=== PATIENT | male | born 1935 | race Caucasian/White ===

== ENCOUNTER 2017-01-09 09:55 | Observation (INO) | payer MEDICARE, BC ==
[~2017-01-09] VITALS: Ht 180.3 cm; Wt 107.8 kg
[2017-01-09] VITALS (647 sets, daily range): BP systolic 113–138; BP diastolic 62–87; PULSE 76–90; TEMP 96.8–97.8; O2SAT 86–99
[~2017-01-09 09:55] MED LIST: AMOXICILLIN 8751 TAB PO; ASPIR-LOW81 MG PO; ASPIRIN 81M81 MG/TA2 PO; ASPIRIN E.C. 8181 MG PO; BUMEX 1MG TA1 MG/TA1 PO; CAL-CITRATE PLU1 TAB PO; CARDIZEM CD 18180 MG PO; CARDURA2 MG PO; CARDURA4 MG PO; CEPHALEXIN500 M1 PO; COLACE 100100 MG/CAP PO; COUMADIN 77.5 MG/TAB PO; COUMADIN10 MG PO; COUMADIN5 MG PO; DILTIAZEM; DOXAZOSIN4 MG PO; FERROUS SU325 MG/TAB PO; FLOMAX 0.40.4 MG/CAP PO; FOLIC ACID 40400 MCG PO; IRON324 M1 PO; K-DUR 2020 MEQ PO; LASIX 40MG TABL40 MG PO; LIPITOR 80MG80 MG PO; LOPRESSOR 225 MG/TAB PO; LOPRESSOR 550 MG/TAB PO; MULTAQ400 MG PO; MULTIPLE VITAMI1 CAP PO; NORCO 325 MG-51 TAB PO; PEPCID 20MG TAB20 MG PO; PLAVIX 75MG TAB75 MG PO; PROTONIX 40MG T40 MG PO; SENOKOT-S TAB1 UDTAB PO; SOTALOL; SOTALOL PO; SOTALOL80 MG PO; TYLENOL 325MG325 MG PO; VITAMIN C500 MG PO; WARFARIN SOD5 MG PO; ZESTRIL 5MG5 MG PO
[2017-01-09] MEDS ORDERED: LASIX 20MG TABL20 MG PO (10:13)
[2017-01-09] MEDS ORDERED: ELIQUIS 2.5 PO (10:14)
[2017-01-09] MEDS ORDERED: LIPITOR 40MG TA40 MG PO (10:15)
[2017-01-09] MEDS ORDERED: ZOLOFT 50MG50 MG PO (10:16)
[2017-01-09] MEDS ORDERED: MULTAQ400 MG PO (10:18)
[2017-01-09 10:35] LABS: BASO # 0.1 (0.0-0.2); BASO % 0.7 % (0.0-2.0); EOS # 0.2 (0.0-0.7); EOS % 2.6 % (0-4.0); GRAN # 4.3 (1.4-6.5); GRAN % 56.4 % (42.2-75.2); HEMATOCRIT 43.9 % (42.0-52.0); HEMOGLOBIN 14.3 g/dl (13.5-18.0); LYMPH # 2.1 (1.2-3.4); LYMPH % 27.5 % (20.0-51.0); MEAN CELL VOLUME 97 fl (80.0-100.0); MEAN CORPUSCULAR HEMOGLOBIN 32 pg (27.0-31.0); MEAN CORPUSCULAR HGB CONC 33 g/dl (33.0-37.0); MEAN PLATELET VOLUME 9.5 fl (7.4-10.4); MONO # 0.9 (0.1-0.6); MONO % 12.4 % (1.7-9.3); PLATELET COUNT 231 K/mm3 (130-400); RED BLOOD COUNT 4.54 M/mm3 (4.20-5.60); WHITE BLOOD COUNT 7.6 K/mm3 (4.8-10.8)
[2017-01-09 10:42] LABS: INR 1.1 (0.8-3.0); PROTHROMBIN TIME 12.2 SECONDS (9.7-12.8)
[2017-01-09 10:47] LABS: ADJUSTED CALCIUM 9.4 mg/dL (8.4-10.2); ALANINE AMINOTRANSFERASE 29 U/L (21-72); ALBUMIN 4.2 gm/dL (3.5-5.0); ALKALINE PHOSPHATASE 151 U/L (50-136); ANION GAP 11 mmol/L (7-16); BILIRUBIN,TOTAL 0.8 mg/dL (0.0-1.0); BLOOD UREA NITROGEN 40 mg/dL (9-20); CALCIUM 9.6 mg/dL (8.4-10.2); CARBON DIOXIDE 25 mmol/L (22-30); CHLORIDE 102 mmol/L (98-107); CREATININE, serum 2.65 mg/dL (0.66-1.25); GLUCOSE 94 mg/dL (74-106); POTASSIUM 4.2 mmol/L (3.4-5.0); SODIUM 137 mmol/L (137-145); TOTAL PROTEIN 7.5 gm/dL (6.4-8.2)
[2017-01-09 10:56] LABS: B-TYPE NATRIURETIC PEPTIDE 2100 pg/mL (0-450)
[2017-01-09 10:58] LABS: C-REACTIVE PROTEIN < 0.5 mg/dL (0.0-0.9); TROPONIN-I 0.062 ng/mL (0.000-0.034)
[2017-01-09 11:03] LABS: COLLECTION METHOD CLEAN CATCH
[2017-01-09 11:10] LABS: MUCOUS Present /lpf; PH 5 (5-8); SQUAMOUS EPITHELIAL None Seen /hpf; URINE APPEARANCE Hazy; URINE BACTERIA None Seen /hpf; URINE BILIRUBIN Negative (NEGATIVE); URINE BLOOD 2+ (NEGATIVE); URINE COLOR Yellow; URINE GLUCOSE Negative (NEGATIVE); URINE KETONE Negative (NEGATIVE); URINE LEUKOCYTE ESTERASE Negative (NEGATIVE); URINE PROTEIN(semi-quant) Negative (NEGATIVE); URINE RBC 0-2 /hpf; URINE UROBILINOGEN Negative (NEGATIVE); URINE WBC 0-2 /hpf
[2017-01-09] MEDS ORDERED: ELIQUIS 5MG PO (12:43)
[2017-01-09] MEDS ORDERED: CARTIA XT180 MG PO (12:45)
[2017-01-10] VITALS (846 sets, daily range): BP systolic 98–141; BP diastolic 64–78; PULSE 65–78; TEMP 97; O2SAT 88–100
[2017-01-10 05:48] LABS: BASO % 0.4 % (0.0-2.0); EOS # 0.2 (0.0-0.7); EOS % 2.6 % (0-4.0); GRAN # 4.9 (1.4-6.5); GRAN % 67.9 % (42.2-75.2); HEMATOCRIT 42.9 % (42.0-52.0); HEMOGLOBIN 13.8 g/dl (13.5-18.0); LYMPH # 1.3 (1.2-3.4); LYMPH % 18.4 % (20.0-51.0); MEAN CELL VOLUME 97 fl (80.0-100.0); MEAN CORPUSCULAR HEMOGLOBIN 31 pg (27.0-31.0); MEAN CORPUSCULAR HGB CONC 32 g/dl (33.0-37.0); MEAN PLATELET VOLUME 9.4 fl (7.4-10.4); MONO # 0.7 (0.1-0.6); MONO % 10.1 % (1.7-9.3); PLATELET COUNT 208 K/mm3 (130-400); RED BLOOD COUNT 4.42 M/mm3 (4.20-5.60); WHITE BLOOD COUNT 7.2 K/mm3 (4.8-10.8)
[2017-01-10 06:02] LABS: ADJUSTED CALCIUM 9.5 mg/dL (8.4-10.2); ALBUMIN 3.7 gm/dL (3.5-5.0); CALCIUM 9.3 mg/dL (8.4-10.2); CHOLESTEROL RISK RATIO 3.2; CREATININE, serum 2.61 mg/dL (0.66-1.25); MAGNESIUM 2.2 mg/dL (1.6-2.3); POTASSIUM 4.5 mmol/L (3.4-5.0)
[2017-01-10 06:13] LABS: TROPONIN-I 0.044 ng/mL (0.000-0.034)
[2017-01-10] MEDS ORDERED: NITROSTAT0.4 MG/TAB SL (14:57)
[2017-01-10] MEDS ORDERED: CORDARONE200 MG/TAB PO (14:57)
== END 2017-01-10 15:30 | disposition home or self-care (01) ==
LOC: COL.ER 09:55 → ICU 11:16
PROVIDERS: Emergency Medicine; Nurse Practitioner Family
DX: I21.4 Non-ST elevation (NSTEMI) myocardial infarction (principal); I48.0 Paroxysmal atrial fibrillation; I25.10 Atherosclerotic heart disease of native coronary artery without angina pectoris; I13.0 Hypertensive heart and chronic kidney disease with heart failure and stage 1 through stage 4 chronic kidney disease, or unspecified chronic kidney disease; I50.30 Unspecified diastolic (congestive) heart failure; N18.4 Chronic kidney disease, stage 4 (severe); E78.5 Hyperlipidemia, unspecified; N40.0 Benign prostatic hyperplasia without lower urinary tract symptoms; Z85.528 Personal history of other malignant neoplasm of kidney; Z90.5 Acquired absence of kidney; J98.11 Atelectasis; Z45.018 Encounter for adjustment and management of other part of cardiac pacemaker; Z95.5 Presence of coronary angioplasty implant and graft; I25.2 Old myocardial infarction; Z79.82 Long term (current) use of aspirin; Z79.01 Long term (current) use of anticoagulants; Z88.1 Allergy status to other antibiotic agents; Z96.642 Presence of left artificial hip joint
CPT/HCPCS: G0378; J0282; J7060

== ENCOUNTER → 2018-11-11 | Outpatient (CLI) | payer MEDICARE, BC ==
[~2018-11-11] MED LIST changes: +CARTIA XT180 MG PO; +CORDARONE200 MG/TAB PO; +ELIQUIS 2.5 PO; +ELIQUIS 5MG PO; +LASIX 20MG TABL20 MG PO; +LIPITOR 40MG TA40 MG PO; +NITROSTAT0.4 MG/TAB SL; +ZOLOFT 50MG50 MG PO
== END ==
LOC: COL.VAS 07:54
DX: N18.4 Chronic kidney disease, stage 4 (severe) (principal)
CPT/HCPCS: G0365

== ENCOUNTER 2019-02-04 09:56 | Day surgery (SDC) | payer MEDICARE, BC ==
[~2019-02-04] VITALS: Ht 180.3 cm; Wt 105.9 kg
[2019-02-04 11:00] VITALS: BP 135/65; PULSE 66; TEMP 97.9
--- NOTE | 2019-02-04 11:03 | NUR ---
Initial visit; Patient and daughter thanked Coil Rewind Machine Operator for offering encouragement and prayer prior to his surgical procedure.
[2019-02-04] MEDS ORDERED: CULTURELLE1 EAC1 PO (11:14)
[2019-02-04] MEDS ORDERED: CARDIZEM CD 12120 MG PO (11:15)
[2019-02-04] MEDS ORDERED: LOPRESSOR 225 MG/TAB PO (11:16)
[2019-02-04] MEDS ORDERED: MULTAQ400 MG PO (11:17)
[2019-02-04] MEDS ORDERED: RANEXA 500MG T500 MG PO (11:17)
[2019-02-04 11:20] LABS: CALCIUM 8.6 mg/dL (8.4-10.2); CREATININE, serum 2.44 (0.66-1.25); POTASSIUM 4.7 mmol/L (3.4-5.0)
--- NOTE | 2019-02-04 11:20 | NUR ---
TO RM AT 1025- CALL LIGHT IN REACH DAUGHTER AMADOR AT BEDSIDE.
[2019-02-04 13:55] VITALS: BP 129/63; PULSE 67
--- NOTE | 2019-02-04 13:55 | NUR ---
Patient returns to room 1 per cart from surgery accompanied by Thad VALVERDE and Юлия LENNON. Patient is awake and alert. Temp 97.4 and room air sats 93%. Javier set dressing on the left wrist and slight thrill noted. IV fluids infusing and siderails up x2. Call light in reach. Daughter in room. Patient is sipping on water.
[2019-02-04 14:10] VITALS: BP 122/60; PULSE 59
--- NOTE | 2019-02-04 14:10 | NUR ---
Resting and continues to drink water. Javier set dry on the left wrist. Offers no complaints of pain.
[2019-02-04 14:25] VITALS: BP 123/59; PULSE 63
--- NOTE | 2019-02-04 14:25 | NUR ---
Resting and is eating muffin. Denies pain or nausea.
[2019-02-04 14:40] VITALS: BP 101/46; PULSE 60
[2019-02-04] MEDS ORDERED: TYLENOL 325MG325 MG PO (14:40)
--- NOTE | 2019-02-04 14:40 | NUR ---
Resting and continues to sip on water and eat muffin.
--- NOTE | 2019-02-04 14:50 | NUR ---
IV discontinued and site is free of redness. Pressure held and site wrapped with coban. Daughter in room and assists patient with dressing.
--- NOTE | 2019-02-04 15:15 | NUR ---
Dismissal instructions given to patient and daughter and both verbalzie understanding of these. Provided handout for and AV fistula restrictions and office number to call for any questions or concerns.
--- NOTE | 2019-02-04 15:23 | NUR ---
Patient dismissed to home driven by daughter and taken to the front door by wheelchair and assisted into car by RN with instructions in hand.
== END 2019-02-04 15:23 | disposition home or self-care (01) ==
LOC: SDCO 09:56
PROVIDERS: Surgery
DX: I13.2 Hypertensive heart and chronic kidney disease with heart failure and with stage 5 chronic kidney disease, or end stage renal disease (principal); N18.5 Chronic kidney disease, stage 5; I25.10 Atherosclerotic heart disease of native coronary artery without angina pectoris; I25.2 Old myocardial infarction; E78.5 Hyperlipidemia, unspecified; M19.90 Unspecified osteoarthritis, unspecified site; Z79.01 Long term (current) use of anticoagulants; Z85.53 Personal history of malignant neoplasm of renal pelvis; Z96.642 Presence of left artificial hip joint; Z95.0 Presence of cardiac pacemaker; Z90.5 Acquired absence of kidney; Z79.82 Long term (current) use of aspirin; Z88.1 Allergy status to other antibiotic agents
CPT/HCPCS: J0690; J1644; J2704; J3010; J7030

== ENCOUNTER 2020-06-08 07:52 | Day surgery (SDC) | payer MEDICARE, BC ==
[~2020-06-08] VITALS: Ht 180.3 cm; Wt 106.8 kg
[~2020-06-08 07:52] MED LIST changes: +CARDIZEM CD 12120 MG PO; +CULTURELLE1 EAC1 PO; +RANEXA 500MG T500 MG PO
[2020-06-08 09:54] VITALS: BP 135/33; PULSE 70; TEMP 97.3
[2020-06-08 11:55] VITALS: BP 137/64; PULSE 63; TEMP 97.1
[2020-06-08 12:10] VITALS: BP 126/55; PULSE 66
[2020-06-08 12:25] VITALS: BP 112/58; PULSE 61
[2020-06-08 12:45] VITALS: BP 120/61; PULSE 62
[2020-06-08 17:46] VITALS: BP 130/72; PULSE 60; TEMP 97.8
--- NOTE | 2020-06-08 17:46 | NUR ---
PT RETURNED FROM PACU PER CART. ALERT AND ORIENTATED. DENIES PAIN OR NAUSEA. REQUESTS BLUEBERRY MUFFIN, WATER AND PEPSI. LUNGS CLEAR, HRR, BOWEL SOUNDS PRESENT AND HYPOACTIVE. O2 ON AT 2L PER NC. SATS ARE MAINTAINED IN THE 90'S. PT DENIES SHORTNESS OF BREATH. DAUGHTER KELSEY AT BEDSIDE TALKING WITH PT. SIDERAILS UP AND CALL LIGHT IN REACH.
--- NOTE | 2020-06-08 17:51 | NUR ---
PT TOLERATING FOOD AND FLUIDS WITHOUT DIFFICULTY. IVF PATENT. DENIES PAIN OR NAUSEA/VOMITING AT THIS TIME. WILL CONT TO MONITOR PROGRESS.
--- NOTE | 2020-06-08 17:54 | NUR ---
PT UP TO THE BATHROOM. AMBULATED WITH DAUGHTER AND HAS A STEADY GAIT. PT STATED, 'TRIED TO GO TO THE BATHROOM, BUT COULDNT GO'. ENCOURAGED PT TO DRINK MORE FLUIDS. OFFERED PT WATER AND ASSISTED PT TO AMBULATE BACK HALLWAY IN OUTPATIENT SURGERY AND EXPLAINED RATIONALE, TO WAKE UP THE BLADDER AFTER GENERAL ANESTHESIA AND TO MONITOR VOIDING HABITS, TO MAKE SURE HE DIDNT DEVELOP A CLOT. PT WAS IN AGREEMENT WITH WALKING AND CONTINUES TO TOLERATE FLUID AND FOOD. PT DENIES NAUSEA AND PAIN. PT WAS VERY APPRECIATIVE OF HIS CARE HERE AT THE HOSPITAL, HIS AFFECT WAS POSITIVE THAT HE WOULD VOID AND WAS LOOKING FORWARD TO GOING HOME. WILL CONT TO MONITOR PROGRESS.
--- NOTE | 2020-06-08 18:01 | NUR ---
ENCOURAGED PATIENT TO AMBULATE AND VOID. PT AMBULATED TO THE BATHROOM AND STATED, 'I DRIBBLED SOME URINE'. PT WAS BLADDER SCANNED, NOTED 269 ML OF FLUID PRESENT IN BLADDER. NOTIFIED DR IRIZARRY OF FINDINGS. STATED THAT HE WOULD COME BY AND VISIT THE PATIENT. PT DAUGHTER BROUGHT PT FOOD FROM [employer]. PT WAS SITTING UP EATING STEAK, SWEET POTATO AND BREAD. ENCOURAGED PT TO DRINK FLUIDS. REQUESTED AND WAS OFFERED PEPSI AND WATER. WILL CONT. TO MONITOR PROGRESS.
--- NOTE | 2020-06-08 18:07 | NUR ---
PT AMBULATED TO THE BATHROOM WITHOUT ASSISTANCE OR DIFFICULTY AND VOIDED LIGHT PINK URINE. DR IRIZARRY INSPECTED URINE AND STATED HE WAS OK FOR DISCHARGE. SPOKE TO THE PATIENT ABOUT INCREASING FLUIDS, GETTING REST, SITTING ON THE TOILET TO VOID AND TRYING TO RELAX. TO RETURN TO ER IF PT WAS UNABLE TO VOID AT HOME AND IF HE BECAME INCREASINGLY UNCOMFORTABLE. PT VOICED UNDERSTANDING OF VERBAL INSTRUCTIONS ALONG WITH KELSEY, HIS DAUGHTER.
--- NOTE | 2020-06-08 18:11 | NUR ---
IV WAS DISCONTINUED TO RIGHT HAND, PT TOLERATED WELL. RETURN APPT WAS MADE FOR May AND WRITTEN ON INSTRUCTION/ DISCHARGE SHEET. PT AND PT DAUGHTER, KELSEY VOICE UNDERSTANDING OF DISCHARGE INSTRUCTIONS AND DISCHARGE PAPERWORK WAS SIGNED. PT WAS TAKEN TO THE ER ENTRANCE AND DISCHARGED TO FAMILY VEHICLE, DAUGHTER KELSEY WAS DRIVING.
== END 2020-06-08 16:00 | disposition home or self-care (01) ==
LOC: SDCO 07:52
DX: D09.0 Carcinoma in situ of bladder (principal); I13.0 Hypertensive heart and chronic kidney disease with heart failure and stage 1 through stage 4 chronic kidney disease, or unspecified chronic kidney disease; I50.9 Heart failure, unspecified; N18.30 Chronic kidney disease, stage 3 unspecified; E11.22 Type 2 diabetes mellitus with diabetic chronic kidney disease; I07.1 Rheumatic tricuspid insufficiency; E78.5 Hyperlipidemia, unspecified; F32.9 Major depressive disorder, single episode, unspecified; I25.10 Atherosclerotic heart disease of native coronary artery without angina pectoris; I48.91 Unspecified atrial fibrillation; E66.9 Obesity, unspecified; Z79.82 Long term (current) use of aspirin; Z85.528 Personal history of other malignant neoplasm of kidney; Z79.01 Long term (current) use of anticoagulants; Z79.899 Other long term (current) drug therapy; Z95.0 Presence of cardiac pacemaker; Z95.818 Presence of other cardiac implants and grafts; Z80.3 Family history of malignant neoplasm of breast
CPT/HCPCS: C1769; J0690; J1100; J2370; J2405; J3010; J7030; Q9967

== ENCOUNTER 2020-06-12 15:50 | Inpatient (IN) | payer MEDICARE, BC ==
[~2020-06-12] VITALS: Ht 180.3 cm; Wt 106.8 kg
[2020-06-12 18:10] LABS: HEMATOCRIT 37.9 % (42.0-52.0); HEMOGLOBIN 12.5 g/dl (13.5-18.0); MEAN CELL VOLUME 97 fl (80.0-100.0); MEAN CORPUSCULAR HEMOGLOBIN 32 pg (27.0-31.0); MEAN CORPUSCULAR HGB CONC 33 g/dl (33.0-37.0); MEAN PLATELET VOLUME 9.6 fl (7.4-10.4); PLATELET COUNT 187 K/mm3 (130-400); RED BLOOD COUNT 3.92 M/mm3 (4.20-5.60); REDCELL DISTRIBUTION WIDTH-CV 13.9 % (11.5-14.5)
[2020-06-12 18:15] LABS: INR 1.1 (0.8-3.0); PROTHROMBIN TIME 11.9 SECONDS (9.7-12.8)
[2020-06-12 18:18] LABS: ALBUMIN 3.3 gm/dL (3.5-5.0); BILIRUBIN,TOTAL 0.3 mg/dL (0.0-1.0); CALCIUM 8.7 mg/dL (8.4-10.2); CREATININE, serum 2.93 (0.66-1.25); POTASSIUM 4.7 mmol/L (3.4-5.0); TOTAL PROTEIN 6.3 gm/dL (6.4-8.2)
[2020-06-12 19:00] LABS: BAND 4 % (0-10); EOSINOPHIL 5 % (0-4); LYMPHOCYTE 27 % (20.0-51.0); NEUTROPHILS 60 % (42.0-75.2); PLATELET ESTIMATE NORMAL (NORMAL)
--- NOTE | 2020-06-12 20:33 | NUR ---
Arrived to unit, awake, alert, oriented x 4, verbal with clear speech, SAXMAN, bladder irrigation ongoing to gravity- urine light red color, tolerating well, denies pain, updated daughter Ashley & patient on plan of care. Verbalized understanding
--- NOTE | 2020-06-12 21:30 | NUR ---
Patient's daughter notified charge nurse that she gave patient night medications - held Eliquis due to the lateness of him arriving to the floor, list obtained from Ashley and put on chart, updated in computer records. MD notified.
[2020-06-12] MEDS ORDERED: LASIX 20MG TABL20 MG PO (22:03)
[2020-06-12 22:20] VITALS: BP 119/58; PULSE 60; TEMP 97.8
--- NOTE | 2020-06-13 03:43 | NUR ---
Resting quietly, CBI continues, adjusted CBI rate accordingly, light pink urine at this time, NPO status maintained, Will continue to monitor.
[2020-06-13 03:52] VITALS: BP 134/56; PULSE 60; TEMP 97.9
[2020-06-13 06:17] LABS: BASO % 0.5 % (0.0-2.0); EOS # 0.3 (0.0-0.7); EOS % 3.7 % (0-4.0); GRAN # 4.9 (1.4-6.5); HEMATOCRIT 37.1 % (42.0-52.0); LYMPH # 1.3 (1.2-3.4); MEAN CELL VOLUME 98 fl (80.0-100.0); MEAN CORPUSCULAR HEMOGLOBIN 32 pg (27.0-31.0); MEAN CORPUSCULAR HGB CONC 32 g/dl (33.0-37.0); MEAN PLATELET VOLUME 9.5 fl (7.4-10.4); MONO # 0.8 (0.1-0.6); MONO % 10.8 % (1.7-9.3); PLATELET COUNT 170 K/mm3 (130-400); RED BLOOD COUNT 3.77 M/mm3 (4.20-5.60); REDCELL DISTRIBUTION WIDTH-CV 13.5 % (11.5-14.5)
[2020-06-13 06:25] LABS: CALCIUM 8.3 mg/dL (8.4-10.2); CREATININE, serum 2.62 (0.66-1.25); POTASSIUM 4.5 mmol/L (3.4-5.0)
[2020-06-13 07:36] VITALS: BP 131/60; PULSE 61; TEMP 98.1
--- NOTE | 2020-06-13 08:00 | NUR ---
Patient 2 assisted up to chair. alert & oriented, very kind. full bed bath given. new linens provided. Cath cares given. He brushed his teeth. Cbi to mod rate increased blood noted after activity. Orders for general diet obtained-breakfast ordered. Int. Will monitor.
--- NOTE | 2020-06-13 09:32 | NUR ---
Hospitlist rounded. Patient daughter at bedside. Patient did well with breakfast. Cbi continues at slow rate pink tinged output.
[2020-06-13 11:34] VITALS: BP 125/62; PULSE 62; TEMP 97.9
--- NOTE | 2020-06-13 12:09 | NUR ---
SW met with patient to complete intake. Patient's daughter Mine [phone] present during time of intake. Patient provides that he lives in [place] alone, does not utilize any DME and is independent with ADL's. Patient's daughter states that patient's DPOA is Dr. Ramsey and pharmacy is [facility], and states that he is able to afford his medications. DPOA-HC is daughter Mine. Daughter states that physician provided that patient would probably go home with in a day or so. Patient's daughter states that patient does not utilize any HH services at this time, but does have a private person that comes in to assist patient. Patient and daughter decline HH services. Patient's plan is to go back to his home in [place] up on [place] and has no questions or concerns with doing so. JAYLENE will continue to follow.
--- NOTE | 2020-06-13 14:25 | NUR ---
Patient has been resting. Reports pressure, the urge to void. Patient lujan hand irrigated with 30ml sterile water. irrigated easy. Lujan flows easy now. pressure was relieved. Patient up to chair- CBI rate increased slightly. Patient watching TV. Provided with warm blanket & pepsi. Will monitor.
[2020-06-13 17:20] VITALS: BP 137/65; PULSE 66; TEMP 98.1
--- NOTE | 2020-06-13 17:43 | NUR ---
Patient assisted back to bed. Sitting up eating dinner. He spoke on the phone to his family. Cbi continues at a slow rate. He denies pain & nausea. Int. Tele on, Vss.
[2020-06-13 19:32] VITALS: BP 129/59; PULSE 62; TEMP 97.8
[2020-06-14 00:01] VITALS: BP 142/56; PULSE 62; TEMP 98.2
[2020-06-14 04:58] VITALS: BP 140/64; PULSE 59; TEMP 98.3
--- NOTE | 2020-06-14 06:04 | NUR ---
RESTING QUIETLY. CBI INFUSES AT A MODERATE-SLOW RATE. OUTPUT IS PINK IN COLOR. NO CLOTS SEEN. THERE HAS BEEN NO NEED TO MANUALLY IRRIGATE DURING THE NIGHT. PT DENIES PAIN OR PRESSURE TO ABDOMEN.
[2020-06-14 06:14] LABS: HEMOGLOBIN 12.1 g/dl (13.5-18.0); MEAN CELL VOLUME 98 fl (80.0-100.0); MEAN CORPUSCULAR HEMOGLOBIN 32 pg (27.0-31.0); MEAN CORPUSCULAR HGB CONC 33 g/dl (33.0-37.0); MEAN PLATELET VOLUME 9.7 fl (7.4-10.4); PLATELET COUNT 174 K/mm3 (130-400); RED BLOOD COUNT 3.73 M/mm3 (4.20-5.60); REDCELL DISTRIBUTION WIDTH-CV 13.7 % (11.5-14.5)
[2020-06-14 06:17] LABS: HEMATOCRIT 36.4 % (42.0-52.0)
[2020-06-14 06:33] LABS: CALCIUM 8.5 mg/dL (8.4-10.2); CREATININE, serum 2.54 (0.66-1.25); POTASSIUM 4.6 mmol/L (3.4-5.0)
[2020-06-14 07:18] VITALS: BP 142/64; PULSE 62; TEMP 98.2
--- NOTE | 2020-06-14 07:22 | NUR ---
Patient assisted up to the chair this am. He is alert & oriented this am. Breakfast ordered. He denies nausea. Int. Pelaez to DD, Cbi to slow rate. He denies pain, will monitor.
--- NOTE | 2020-06-14 09:38 | NUR ---
Patient sitting up in chair, I did speak to , he will see patient this evening. I will continue to monitor CBI & try to titrate off. It remains at a slow drip with pink output, sediment noted. Update given to his daughter Ashley(Ob Nurse)-she will work go to work and head back this evening. Will continue to monitor
--- NOTE | 2020-06-14 10:51 | NUR ---
Varnisher Apprentice attended clinical rounds with the team. After rounds, SW met with the patient to review the discharge plan. The patient is open to home health services and wanted me to discuss it with his daughter, Ashley. SW contacted Ashley. The patient's recently and used [facility] in [place]. Ashley would like to use them if they provide home health services, if not [facility] is the choice. SW contacted [facility] in [place] and they do not provide home health services. JAYLENE faxed referrals to [facility] and contacted Elisa regarding referral. They will review referral then inform this SW of decision. JAYLENE attempted to contact Ashley to provide the above update, left message. *Discharge disposition* Home with Home Health. Awaiting screen for home health services from [facility].
[2020-06-14 11:16] VITALS: BP 145/72; PULSE 76; TEMP 97.8
--- NOTE | 2020-06-14 11:43 | NUR ---
Patient resting in bed. Lunch ordered. Pelaez care provided. New stat lock to right thigh. Cbi continues at slow rate. Enrique celestin.
--- NOTE | 2020-06-14 11:45 | NUR ---
First visit from the practice administrator. No needs right now.
--- NOTE | 2020-06-14 14:26 | NUR ---
Patient CBI clamped per . He did well with lunch. Will monitor.
--- NOTE | 2020-06-14 14:55 | NUR ---
Elisa with [facility] contacted this SW regarding the patient. Elisa reports that the patient is accepted for home health services when ready to discharge.
[2020-06-14 16:00] VITALS: BP 150/66; PULSE 90; TEMP 97.7
--- NOTE | 2020-06-14 16:19 | NUR ---
Dr.Rosso olmedo. Plan of care reviewed. Update given to his daughter Ashley. Patient up and we ambulated the halls. gaitbelt on. Dyspnea with exertion. Patient now talking to his daughter on the phone.
--- NOTE | 2020-06-14 19:53 | NUR ---
Assisted patient to the bathroom. He had soft formed bowel movement. Assesment done. Patient denies pain. CBI clamped. He is on room air. Placed SCD on bilateral lower extremities. Bed alarm on.
--- NOTE | 2020-06-14 20:10 | NUR ---
Patient back to bed. He was up to the bathroom & had BM. He reports feeling the urge to void. hand irrigated lujan-no clots. pressure subsided. Now resting. Report to night nurse.
[2020-06-14 20:27] VITALS: BP 136/56; PULSE 60; TEMP 97.8
[2020-06-15 00:51] VITALS: BP 128/58; PULSE 65; TEMP 98
[2020-06-15 03:33] VITALS: BP 142/63; PULSE 69; TEMP 98.2
--- NOTE | 2020-06-15 05:21 | NUR ---
Patient denies pain. No blood clots noted on CBI. Informed patient that we will discontinue his CBI and instructed him to use the urinal so we can see what his void would look like. Patient verbalizes understanding. Cat LENNON assisted me in removing the catheter. Primed 200 ml of irrigation and pulled the catheter. Patient tolerated the procedure.
--- NOTE | 2020-06-15 05:37 | NUR ---
Patient was able to void 70ml of urine after removal of catheter. Few blood clots noted. Instructed him to continue voiding in the urinal.
--- NOTE | 2020-06-15 07:09 | NUR ---
Pt resting in bed at this time, he has voided x2. No pain complaints at this time
[2020-06-15 07:16] LABS: MEAN CELL VOLUME 100 fl (80.0-100.0); MEAN CORPUSCULAR HEMOGLOBIN 33 pg (27.0-31.0); MEAN CORPUSCULAR HGB CONC 33 g/dl (33.0-37.0); MEAN PLATELET VOLUME 9.4 fl (7.4-10.4); PLATELET COUNT 165 K/mm3 (130-400); RED BLOOD COUNT 3.68 M/mm3 (4.20-5.60)
[2020-06-15 07:30] LABS: CALCIUM 8.3 mg/dL (8.4-10.2); CREATININE, serum 2.32 (0.66-1.25); POTASSIUM 4.4 mmol/L (3.4-5.0)
[2020-06-15 07:32] LABS: HEMATOCRIT 36.8 % (42.0-52.0)
[2020-06-15 07:37] VITALS: BP 133/63; PULSE 66; TEMP 97.7
--- NOTE | 2020-06-15 08:14 | NUR ---
Pt has voided several times. After ambulating, he did void a 4th cup. It was a little darker with small clot. Encouraged water intake, no pain complaints. Pt is sitting up in the chair waiting on breakfast
[2020-06-15 08:36] LABS: EOSINOPHIL 3 % (0-4); LYMPHOCYTE 24 % (20.0-51.0); NEUTROPHILS 60 % (42.0-75.2); PLATELET ESTIMATE NORMAL (NORMAL)
--- NOTE | 2020-06-15 09:30 | NUR ---
Pt resting with his eyes closed, even non labored breathing
[2020-06-15 11:09] VITALS: BP 129/51; PULSE 65; TEMP 97.8
--- NOTE | 2020-06-15 11:29 | NUR ---
Assembly Line Leader attended clinical rounds with the team. The patient is to tentatively discharge home today, 06/15 with [facility]. PT/OT/Nursing services. The patient's daughter to provide transportation. JAYLENE met with the patient to complete the IM form. The patient verbalized understanding and gave SW permission to sign the form on his behalf. A copy was provided to the patient and original in the chart. JAYLENE faxed discharge orders to Elisa at [facility]. JAYLENE contacted Elisa regarding discharge. There are no additional needs.
--- NOTE | 2020-06-15 12:55 | NUR ---
Reviewed discharge instructions with patient and his daughter Mine. Pt escorted out at this time
== END 2020-06-15 12:57 | disposition home health service (06) | DRG 813 ==
LOC: COL.ER 15:50 → SURG 18:24
PROVIDERS: Emergency Medicine; Physician Assistant; Student in an Organized Health Care Education/Training Program
DX: D68.32 Hemorrhagic disorder due to extrinsic circulating anticoagulants (principal); I13.0 Hypertensive heart and chronic kidney disease with heart failure and stage 1 through stage 4 chronic kidney disease, or unspecified chronic kidney disease; I50.32 Chronic diastolic (congestive) heart failure; N18.4 Chronic kidney disease, stage 4 (severe); E66.9 Obesity, unspecified; I25.10 Atherosclerotic heart disease of native coronary artery without angina pectoris; F32.9 Major depressive disorder, single episode, unspecified; E78.5 Hyperlipidemia, unspecified; I48.0 Paroxysmal atrial fibrillation; N40.0 Benign prostatic hyperplasia without lower urinary tract symptoms; T45.515A Adverse effect of anticoagulants, initial encounter; N13.9 Obstructive and reflux uropathy, unspecified; Z79.01 Long term (current) use of anticoagulants; Z79.82 Long term (current) use of aspirin; Z88.1 Allergy status to other antibiotic agents; R31.9 Hematuria, unspecified
CPT/HCPCS: 99232-AI; 99239; J0696

== ENCOUNTER → 2021-01-26 | Outpatient (CLI) | payer MEDICARE, BC ==
[2021-01-26 19:29] LABS: CALCIUM 8.9 mg/dL (8.4-10.2); CREATININE, serum 3.23 mg/dL (0.72-1.25); POTASSIUM 4.4 mmol/L (3.5-4.5)
[2021-01-26 21:29] LABS: THYROID STIMULATING HORMONE 1.291 uIU/mL (0.350-4.940)
[2021-01-26 21:32] LABS: TROPONIN-I 0.035 ng/mL (0.00-0.033)
== END ==
LOC: ZCOL.LAB 18:15
PROVIDERS: Internal Medicine Interventional Cardiology
DX: E11.21 Type 2 diabetes mellitus with diabetic nephropathy (principal); R06.02 Shortness of breath

== ENCOUNTER 2021-05-09 16:37 | Inpatient (IN) | payer MEDICARE, BC ==
[~2021-05-09] VITALS: Ht 180.3 cm; Wt 102.0 kg
[2021-05-09 17:38] LABS: BASO % 0.4 % (0.0-2.0); EOS % 0.8 % (0.0-4.0); GRAN # 3.6 K/mm3 (1.4-6.5); GRAN % 69.9 % (42.2-75.2); HEMATOCRIT 41.4 % (42.0-52.0); HEMOGLOBIN 13.9 g/dl (13.5-18.0); LYMPH # 0.9 K/mm3 (1.2-3.4); LYMPH % 17.1 % (20.0-51.0); MEAN CELL VOLUME 96 fl (80.0-100.0); MEAN CORPUSCULAR HEMOGLOBIN 32 pg (27-31); MEAN CORPUSCULAR HGB CONC 34 g/dl (33.0-37.0); MEAN PLATELET VOLUME 9.4 fl (7.4-10.4); MONO # 0.6 K/mm3 (0.1-0.6); MONO % 10.6 % (1.7-9.3); PLATELET COUNT 159 K/mm3 (130-400); RED BLOOD COUNT 4.32 M/mm3 (4.20-5.60); REDCELL DISTRIBUTION WIDTH-CV 14.3 % (11.5-14.5)
[2021-05-09 17:59] LABS: ALBUMIN 3.5 gm/dL (3.4-4.8); BILIRUBIN,TOTAL 0.5 mg/dL (0.2-1.2); CALCIUM 8.5 mg/dL (8.4-10.2); CREATININE, serum 2.57 mg/dL (0.72-1.25); POTASSIUM 4.2 mmol/L (3.5-4.5); TOTAL PROTEIN 7.6 gm/dL (6.2-8.1)
[2021-05-09 22:05] LABS: COLLECTION METHOD CLEAN CATCH
[2021-05-09 22:07] VITALS: BP 138/69; PULSE 79; TEMP 98.8
[2021-05-09 22:15] LABS: MUCOUS Present (NOT PRESENT); PH 5 (5-8); SQUAMOUS EPITHELIAL None Seen /hpf (0-10); URINE APPEARANCE Hazy (CLEAR/HAZY); URINE BACTERIA None Seen /hpf (NONE SEEN); URINE BILIRUBIN Negative (NEGATIVE); URINE BLOOD Negative (NEGATIVE); URINE COLOR Yellow (YELLOW); URINE GLUCOSE Negative (NEGATIVE); URINE KETONE Negative (NEGATIVE); URINE LEUKOCYTE ESTERASE Negative (NEGATIVE); URINE NITRATE Negative (NEGATIVE); URINE PROTEIN(semi-quant) Negative (NEGATIVE); URINE UROBILINOGEN Negative (NEGATIVE)
[2021-05-09 22:55] LABS: CLOSTRIDIUM DIFF A/B NEG; CLOSTRIDIUM DIFF A/B INTERP No C.diff present
[2021-05-10 01:15] VITALS: BP 127/64; PULSE 77; TEMP 98.9
[2021-05-10 05:24] VITALS: BP 134/56; PULSE 70; TEMP 98.8
[2021-05-10 06:43] LABS: BASO % 0.4 % (0.0-2.0); EOS # 0.1 K/mm3 (0.0-0.7); EOS % 1.1 % (0.0-4.0); GRAN # 3.5 K/mm3 (1.4-6.5); GRAN % 61.9 % (42.2-75.2); HEMATOCRIT 42.4 % (42.0-52.0); LYMPH # 1.4 K/mm3 (1.2-3.4); LYMPH % 24.6 % (20.0-51.0); MEAN CELL VOLUME 98 fl (80.0-100.0); MEAN CORPUSCULAR HEMOGLOBIN 32 pg (27-31); MEAN CORPUSCULAR HGB CONC 33 g/dl (33.0-37.0); MONO # 0.6 K/mm3 (0.1-0.6); MONO % 11.3 % (1.7-9.3); PLATELET COUNT 146 K/mm3 (130-400); RED BLOOD COUNT 4.33 M/mm3 (4.20-5.60); REDCELL DISTRIBUTION WIDTH-CV 14.2 % (11.5-14.5)
[2021-05-10 06:51] LABS: CALCIUM 8.5 mg/dL (8.4-10.2); CREATININE, serum 2.48 mg/dL (0.72-1.25); POTASSIUM 4.6 mmol/L (3.5-4.5)
[2021-05-10 07:32] VITALS: BP 152/58; PULSE 73; TEMP 98.8
[2021-05-10 08:16] LABS: INR 1.3 (0.8-3.0); PROTHROMBIN TIME 14.7 SECONDS (9.7-12.8)
[2021-05-10 11:56] VITALS: BP 145/56; PULSE 71; TEMP 98.5
[2021-05-10 16:00] VITALS: BP 124/78; PULSE 75; TEMP 98.7
[2021-05-10 20:00] VITALS: BP 145/59; PULSE 77; TEMP 98.8
[2021-05-11] VITALS (11 sets, daily range): BP systolic 105–154; BP diastolic 54–75; PULSE 59–75; TEMP 97.6–99
[2021-05-11 05:47] LABS: BASO % 0.2 % (0.0-2.0); EOS # 0.2 K/mm3 (0.0-0.7); EOS % 3.3 % (0.0-4.0); GRAN # 3.3 K/mm3 (1.4-6.5); GRAN % 59.4 % (42.2-75.2); HEMATOCRIT 38.2 % (42.0-52.0); HEMOGLOBIN 12.6 g/dl (13.5-18.0); LYMPH # 1.3 K/mm3 (1.2-3.4); LYMPH % 24.2 % (20.0-51.0); MEAN CELL VOLUME 98 fl (80.0-100.0); MEAN CORPUSCULAR HEMOGLOBIN 32 pg (27-31); MEAN CORPUSCULAR HGB CONC 33 g/dl (33.0-37.0); MEAN PLATELET VOLUME 10.2 fl (7.4-10.4); MONO # 0.7 K/mm3 (0.1-0.6); MONO % 12.4 % (1.7-9.3); PLATELET COUNT 123 K/mm3 (130-400); REDCELL DISTRIBUTION WIDTH-CV 13.8 % (11.5-14.5)
[2021-05-11 05:56] LABS: CALCIUM 8.1 mg/dL (8.4-10.2); CREATININE, serum 2.13 mg/dL (0.72-1.25); POTASSIUM 4.2 mmol/L (3.5-4.5)
[2021-05-12 00:34] VITALS: BP 155/63; PULSE 63; TEMP 98.8
[2021-05-12 04:25] VITALS: BP 145/54; PULSE 67; TEMP 98.4
[2021-05-12 06:41] LABS: BASO % 0.1 % (0.0-2.0); GRAN # 6.2 K/mm3 (1.4-6.5); GRAN % 80.5 % (42.2-75.2); HEMOGLOBIN 11.2 g/dl (13.5-18.0); LYMPH # 0.8 K/mm3 (1.2-3.4); LYMPH % 10.6 % (20.0-51.0); MEAN CELL VOLUME 95 fl (80.0-100.0); MEAN CORPUSCULAR HEMOGLOBIN 32 pg (27-31); MEAN CORPUSCULAR HGB CONC 34 g/dl (33.0-37.0); MEAN PLATELET VOLUME 10.5 fl (7.4-10.4); MONO # 0.6 K/mm3 (0.1-0.6); MONO % 8.4 % (1.7-9.3); PLATELET COUNT 122 K/mm3 (130-400); RED BLOOD COUNT 3.46 M/mm3 (4.20-5.60); REDCELL DISTRIBUTION WIDTH-CV 13.5 % (11.5-14.5)
[2021-05-12 06:47] LABS: HEMATOCRIT 32.8 % (42.0-52.0)
[2021-05-12 06:52] LABS: CALCIUM 8.1 mg/dL (8.4-10.2); CREATININE, serum 2.33 mg/dL (0.72-1.25); POTASSIUM 4.5 mmol/L (3.5-4.5)
[2021-05-12 07:27] VITALS: BP 139/64; PULSE 66; TEMP 97.8
[2021-05-12 11:39] VITALS: BP 140/58; PULSE 64; TEMP 98.3
[2021-05-12 14:38] LABS: HEMOGLOBIN 10.7 g/dl (13.5-18.0)
[2021-05-12 14:54] LABS: HEMATOCRIT 31.3 % (42.0-52.0)
[2021-05-12 15:09] LABS: COLLECTION METHOD CLEAN CATCH
[2021-05-12 15:30] LABS: PH 6 (5-8); SQUAMOUS EPITHELIAL None Seen /hpf (0-10); URINE APPEARANCE Cloudy (CLEAR/HAZY); URINE BACTERIA None Seen /hpf (NONE SEEN); URINE BILIRUBIN Negative (NEGATIVE); URINE BLOOD 2+ (NEGATIVE); URINE COLOR Red (YELLOW); URINE GLUCOSE 1+ (NEGATIVE); URINE KETONE 1+ (NEGATIVE); URINE LEUKOCYTE ESTERASE Negative (NEGATIVE); URINE NITRATE Negative (NEGATIVE); URINE PROTEIN(semi-quant) 2+ (NEGATIVE); URINE RBC None Seen /hpf (0-2); URINE UROBILINOGEN Negative (NEGATIVE)
[2021-05-12 15:47] VITALS: BP 144/78; PULSE 77; TEMP 97.9
[2021-05-12 20:35] VITALS: BP 114/67; PULSE 70; TEMP 98.2
[2021-05-13] VITALS (7 sets, daily range): BP systolic 123–150; BP diastolic 50–84; PULSE 59–72; TEMP 97.5–98.7
[2021-05-13 05:54] LABS: HEMOGLOBIN 11.1 g/dl (13.5-18.0); MEAN CELL VOLUME 93 fl (80.0-100.0); MEAN CORPUSCULAR HEMOGLOBIN 33 pg (27-31); MEAN CORPUSCULAR HGB CONC 35 g/dl (33.0-37.0); MEAN PLATELET VOLUME 9.9 fl (7.4-10.4); PLATELET COUNT 132 K/mm3 (130-400); RED BLOOD COUNT 3.39 M/mm3 (4.20-5.60); REDCELL DISTRIBUTION WIDTH-CV 13.3 % (11.5-14.5)
[2021-05-13 06:01] LABS: CALCIUM 8.4 mg/dL (8.4-10.2); CREATININE, serum 2.01 mg/dL (0.72-1.25); POTASSIUM 4.1 mmol/L (3.5-4.5)
[2021-05-13 06:20] LABS: HEMATOCRIT 31.4 % (42.0-52.0)
[2021-05-13 07:01] LABS: BAND 2 % (0-10); LYMPHOCYTE 19 % (20.0-51.0); NEUTROPHILS 70 % (42.0-75.2)
[2021-05-13 07:02] LABS: PLATELET ESTIMATE DECREASED (NORMAL)
[2021-05-14 03:29] VITALS: BP 128/64; PULSE 63; TEMP 97
[2021-05-14 07:04] LABS: HEMOGLOBIN 10.6 g/dl (13.5-18.0); MEAN CELL VOLUME 96 fl (80.0-100.0); MEAN CORPUSCULAR HEMOGLOBIN 33 pg (27-31); MEAN CORPUSCULAR HGB CONC 34 g/dl (33.0-37.0); MEAN PLATELET VOLUME 10.5 fl (7.4-10.4); PLATELET COUNT 142 K/mm3 (130-400); RED BLOOD COUNT 3.25 M/mm3 (4.20-5.60); REDCELL DISTRIBUTION WIDTH-CV 13.7 % (11.5-14.5)
[2021-05-14 07:07] LABS: HEMATOCRIT 31.3 % (42.0-52.0)
[2021-05-14 07:19] LABS: CALCIUM 8.5 mg/dL (8.4-10.2); CREATININE, serum 1.84 mg/dL (0.72-1.25)
[2021-05-14 07:31] VITALS: BP 129/62; PULSE 59; TEMP 97.8
[2021-05-14 07:35] LABS: BAND 2 % (0-10); BASOPHIL 1 % (0-2); EOSINOPHIL 4 % (0-4); LYMPHOCYTE 26 % (20.0-51.0); NEUTROPHILS 57 % (42.0-75.2); PLATELET ESTIMATE NORMAL (NORMAL)
[2021-05-14 11:54] VITALS: BP 102/51; PULSE 63; TEMP 96.6
[2021-05-14] MEDS ORDERED: SENEXON-S 50-81 EACH PO (12:04)
[2021-05-14] MEDS ORDERED: VITAMIN C500 MG PO (12:05)
[2021-05-14] MEDS ORDERED: CALCIUM 600600 MG PO (12:07)
[2021-05-14] MEDS ORDERED: OMNICEF 300MG300 MG PO (12:12)
[2021-05-14] MEDS ORDERED: ZTLIDO1 EACH TP (12:23)
[2021-05-14 14:14] VITALS: BP 102/51; PULSE 63; TEMP 96.6
[2021-05-14] MEDS ORDERED: NORCO 325 MG-51 TAB PO (14:29)
== END 2021-05-14 15:58 | DRG 521 ==
LOC: COL.ER 16:37 → SURG 19:00
PROVIDERS: Orthopaedic Surgery; Physician Assistant; Student in an Organized Health Care Education/Training Program; ADMIT Internal Medicine
PROC: 5A09357 Assistance with Respiratory Ventilation, Less than 24 Consecutive Hours, Continuous Positive Airway Pressure (ICD-10-PCS; 2021-05-11)
PROC: 0SRR0J9 Replacement of Right Hip Joint, Femoral Surface with Synthetic Substitute, Cemented, Open Approach (ICD-10-PCS; principal; 2021-05-11 13:00)
DX: S72.001A Fracture of unspecified part of neck of right femur, initial encounter for closed fracture (principal); J96.01 Acute respiratory failure with hypoxia; J18.9 Pneumonia, unspecified organism; Q60.0 Renal agenesis, unilateral; N18.4 Chronic kidney disease, stage 4 (severe); I13.0 Hypertensive heart and chronic kidney disease with heart failure and stage 1 through stage 4 chronic kidney disease, or unspecified chronic kidney disease; I50.42 Chronic combined systolic (congestive) and diastolic (congestive) heart failure; E87.1 Hypo-osmolality and hyponatremia; E66.9 Obesity, unspecified; Z66 Do not resuscitate; I25.10 Atherosclerotic heart disease of native coronary artery without angina pectoris; E78.5 Hyperlipidemia, unspecified; F32.A Depression, unspecified; E86.0 Dehydration; I45.10 Unspecified right bundle-branch block; I49.3 Ventricular premature depolarization; I08.1 Rheumatic disorders of both mitral and tricuspid valves; I27.20 Pulmonary hypertension, unspecified; I48.0 Paroxysmal atrial fibrillation; N47.2 Paraphimosis; R31.0 Gross hematuria; W06.XXXA Fall from bed, initial encounter; Y93.89 Activity, other specified; Y92.003 Bedroom of unspecified non-institutional (private) residence as the place of occurrence of the external cause; Z96.642 Presence of left artificial hip joint; Z85.51 Personal history of malignant neoplasm of bladder; Z79.01 Long term (current) use of anticoagulants; Z85.53 Personal history of malignant neoplasm of renal pelvis; Z79.82 Long term (current) use of aspirin; Z95.0 Presence of cardiac pacemaker; Z20.822 Contact with and (suspected) exposure to COVID-19; Z68.32 Body mass index [BMI] 32.0-32.9, adult; Z23 Encounter for immunization
CPT/HCPCS: 99223-AI; 99232-AI; 99233-AI; 99239; A9284; C1776; J0690; J0696; J1100; J1940; J2250; J2270; J2405; J2704; J2795; J3010; J7030; J7120

== ENCOUNTER → 2021-05-18 | Outpatient (CLI) | payer MEDICARE, BC ==
[~2021-05-18] MED LIST changes: +CALCIUM 600600 MG PO; +OMNICEF 300MG300 MG PO; +SENEXON-S 50-81 EACH PO; +ZTLIDO1 EACH TP
[2021-05-18 17:52] LABS: HEMOGLOBIN 10.8 g/dl (13.5-18.0); MEAN CELL VOLUME 96 fl (80.0-100.0); MEAN CORPUSCULAR HEMOGLOBIN 32 pg (27-31); MEAN CORPUSCULAR HGB CONC 33 g/dl (33.0-37.0); PLATELET COUNT 303 K/mm3 (130-400); RED BLOOD COUNT 3.38 M/mm3 (4.20-5.60)
[2021-05-18 17:57] LABS: ALBUMIN 2.4 gm/dL (3.4-4.8); CALCIUM 8.7 mg/dL (8.4-10.2); CREATININE, serum 1.8 mg/dL (0.72-1.25); PHOSPHOROUS 2.7 mg/dL (2.3-4.7); POTASSIUM 4.6 mmol/L (3.5-4.5)
[2021-05-18 18:01] LABS: HEMATOCRIT 32.5 % (42.0-52.0)
[2021-05-18 18:49] LABS: BAND 3 % (0-10); EOSINOPHIL 2 % (0-4); LYMPHOCYTE 21 % (20.0-51.0); NEUTROPHILS 67 % (42.0-75.2)
[2021-05-18 18:50] LABS: HYPOCHROMIA 1+; PLATELET ESTIMATE NORMAL (NORMAL)
== END ==
LOC: ZLAB.STJ 16:33
PROVIDERS: Internal Medicine
DX: R94.4 Abnormal results of kidney function studies (principal); R68.89 Other general symptoms and signs

== ENCOUNTER → 2021-05-26 | Outpatient (CLI) | payer MEDICARE, BC ==
[2021-05-26 13:53] LABS: CALCIUM 8.6 mg/dL (8.4-10.2); CREATININE, serum 1.82 mg/dL (0.72-1.25); POTASSIUM 5.1 mmol/L (3.5-4.5)
[2021-05-26 13:59] LABS: BASO % 0.6 % (0.0-2.0); EOS # 0.3 K/mm3 (0.0-0.7); EOS % 4.9 % (0.0-4.0); GRAN # 3.6 K/mm3 (1.4-6.5); GRAN % 53.9 % (42.2-75.2); HEMATOCRIT 30.7 % (42.0-52.0); HEMOGLOBIN 9.9 g/dl (13.5-18.0); LYMPH # 1.8 K/mm3 (1.2-3.4); MEAN CELL VOLUME 100 fl (80.0-100.0); MEAN CORPUSCULAR HEMOGLOBIN 32 pg (27-31); MEAN CORPUSCULAR HGB CONC 32 g/dl (33.0-37.0); MEAN PLATELET VOLUME 9.8 fl (7.4-10.4); MONO # 0.9 K/mm3 (0.1-0.6); MONO % 12.7 % (1.7-9.3); PLATELET COUNT 338 K/mm3 (130-400); RED BLOOD COUNT 3.08 M/mm3 (4.20-5.60); REDCELL DISTRIBUTION WIDTH-CV 14.3 % (11.5-14.5)
== END ==
LOC: ZLAB.STJ 13:39
PROVIDERS: Internal Medicine
DX: N17.9 Acute kidney failure, unspecified (principal); D62 Acute posthemorrhagic anemia